=== PATIENT | female | born 1965 | race Caucasian/White ===

== ENCOUNTER → 2018-05-23 | Outpatient (CLI) | payer BC ==
--- NOTE | 2018-05-23 15:46 | RADIOLOGY IMAGING REPORT ---
FACILITY: [facility] - [place] PATIENT NAME: Mervat Queen : 1965 MR: [id number] V: [id number] EXAM DATE: ORDERING PHYSICIAN: JOSELYN LUZ TECHNOLOGIST: [place] [facility] [place] Mervat [place] : 1965 Visit/Account:[id number] Date of Sevice: 05/23/2018 Examination: Pelvic ultrasound Comparison: None Available History: Menopausal menorrhagia. Findings: Standard endovaginal and transabdominal pelvic ultrasound with color flow and spectral anal ysis. Uterus: Uterus measurement: 10.9 x 4.6 x 7.3 cm Endometrium measurement: 11 mm A few small cervical nabothian cysts are present. The endometrium and myometrium are homogeneous wit h no focal mass, fluid collection, or vascular abnormality identified. Adnexa: Right ovary: 2.4 x 1.6 x 2.2 cm . Best seen on endovaginal imaging there is a questionable homogeneo us intermediate attenuation 1.4 x 1.7 x 1.5 cm nonvascular lesion. Normal ovarian waveforms are demo nstrated on Doppler interrogation. Left ovary: 2.0 x 1.9 x 1.9 cm . No suspicious ovarian or adnexal mass. Normal arterial and venous f low is documented within the ovary on Doppler evaluation. Free fluid: None Urinary bladder: Unremarkable. IMPRESSION: 1. 11 mm homogeneous endometrium. Although no mass or vascular abnormality is identified, given the history of menopausal menorrhagia, hyperplasia/neoplasia cannot be excluded and at minimum, sonograp hic follow-up in 6-10 weeks is recommended. Alternatively, consider further characterization with ti ssue sampling. 2. Questionable 1.4 x 1.7 x 1.5 cm nonvascular lesion in the right ovary. Although a complex cyst i s favored with a solid mass consider less likely, sonographic follow-up in 6-10 weeks to evaluate for interval change is recommended. Report Dictated By: Nikolai Rivera MD at 05/23/2018 3:37 PM Report E-Signed By: Nikolai Rivera MD at 05/23/2018 3:42 PM WSN:[email or web address]
== END ==
LOC: US 03:57
PROVIDERS: ATTEND Nurse Practitioner Family
DX: N83.9 Noninflammatory disorder of ovary, fallopian tube and broad ligament, unspecified (principal); N92.4 Excessive bleeding in the premenopausal period
CPT/HCPCS: 76856

== ENCOUNTER → 2018-10-10 | Outpatient (CLI) | payer BC ==
[~2018-10-10] MED LIST: CHOL10005 PO; PROG200C PO
--- NOTE | 2018-10-12 23:41 | RT HOLTER TEST ---
FACILITY: [facility] PATIENT NAME: TYE NINO : [id number] MR: [id number] V: [id number] EXAM DATE: ORDERING PHYSICIAN: JOSELYN LUZ TECHNOLOGIST: Didier Hook-up date: 2018-10-10 11:21:00 Duration: 47:59:00 Test Indications: Tachycardia Medications: Propranolol Progesterone [id number] QRS complexes 27 Ventricular ectopics which represent <1 % of total QRS comp. 2 Supraventricular ectopics which represent <1 % of total QRS comp. * Paced QRS complexes which represent % of total QRS comp. VENTRICULAR ECTOPY 27 Isolated 0 Bigeminal Cycles 0 Couplets 0 Runs 0 Beats in Runs * Beats LONGEST at * BPM at :: -- * Beats FASTEST at * BPM at :: -- SUPRAVENTRICULAR ECTOPY 2 Isolated 0 Couplets 0 Runs 0 Beats in Runs * Beats LONGEST at * BPM at :: -- * Beats FASTEST at * BPM at :: -- HEART RATES 59 MIN at 21:27:20 2018-10-11 84 AVG 127 MAX at 10:54:58 2018-10-12 LONGEST RR 1.328 secs at 23:40:54 2018-10-10 Channel 3 -12.800 mm MIN at 11:21:00 2018-10-10 -12.800 mm MAX at 11:21:00 2018-10-10 The patient had 5 symptom triggered events. Four of them had a sinus tachycardia ranging from 103-10 8 beats per minute (bpm). The other event was a sinus rhythm at a rate of 95 bpm. There were no symptoms at the maximum heart rate of 127 bpm or ot her tachycardia events. The patient was predominantly in a sinus rhythm with rare ventricular ectopy and supraventricular ectopy. Confirmed by CLINTON TUCKER ([id number]) on 10/12/2018 11:41:25 PM Referred By: Overread By: CLINTON TUCKER
== END ==
LOC: LAB 10:31
PROVIDERS: ATTEND Nurse Practitioner Family
DX: R10.9 Unspecified abdominal pain (principal); R19.7 Diarrhea, unspecified; N95.1 Menopausal and female climacteric states; M25.50 Pain in unspecified joint; R00.0 Tachycardia, unspecified
CPT/HCPCS: 36415; 82784; 83516; 84443; 85651; 86038; 86140; 86430; 93225

== ENCOUNTER → 2018-11-11 | Outpatient (CLI) | payer BC ==
--- NOTE | 2018-11-11 12:16 | RADIOLOGY IMAGING REPORT ---
FACILITY: [facility] - [place] PATIENT NAME: Mervat Queen : 1965 MR: [id number] V: [id number] EXAM DATE: ORDERING PHYSICIAN: JOSELYN LUZ TECHNOLOGIST: Location: [facility] - [place] Patient: Mervat Queen : 1965 Visit/Account:[id number] Date of Sevice: 11/11/2018 EXAMINATION: Ultrasound thyroid HISTORY: Enlarged thyroid gland. COMPARISON: None. FINDINGS: Thyroid size: Right lobe: 5.5 x 2 x 2.6 cm Left lobe: 5.2 x 1 x 1.5 cm Isthmus: 0.2 cm Thyroid parenchyma: Homogeneous echotexture Thyroid vascularity: Normal. Thyroid nodules: Right lobe: * A solitary dominant partly solid and cystic right thyroid nodule is present in the mid to lower lo be, of 3.8 x 1.9 x 2.5 cm. Punctate foci of hyperechogenicity are most suggestive of colloid, althou gh microcalcifications may present similarly.. Left lobe: * Approximately 3 partly solid and cystic nodules are present. * Largest inferiorly measures 1.1 x 0.7 x 0.8 cm * Couple in the mid lobe measure 0.5 x 0.3 x 0.5 cm, and 0.5 x 0.2 x 0.3 cm. Isthmus: * None discrete. Additional findings: None. IMPRESSION: 1. Multinodular thyroid gland with dominant partly solid and cystic nodule on the right of up to 3.8 cm. Foci of hyperechogenicity are suggestive of colloid, although microcalcifications may present s imilarly. Based on size criteria, recommend correlation with fine-needle aspiration. 2. Approximately 3 partly solid and cystic left thyroid nodules have very low suspicion features, la rgest measuring 1.1 cm. No indication for left sided fine-needle aspiration at this time. REFERENCE: 2015 [employer] Management Guidelines for Adult Patients with Thyroid Nodules and D ifferentiated Thyroid Cancer: The [employer] Guidelines Task Force on Thyroid Nodul es and Differentiated Thyroid Cancer. SONOGRAPHIC PATTERNS: * Benign: Purely cystic nodules (no solid component); estimated risk of malignancy <1 percent; no bi opsy recommended. * Very Low Suspicion: Spongiform or partially cystic nodules without any of the sonographic features described in low, intermediate, or high suspicion patterns; estimated risk of malignancy <3 percent; consider FNA at > 2 cm (Observation without FNA is also a reasonable option). * Low Suspicion: Isoechoic or hyperechoic solid nodule, or partially cystic nodule with eccentric so lid areas, without microcalcification, irregular margin or ETE (extra-thyroidal extension), or taller than wide shape; estimated risk of malignancy 5-10 percent; recommend FNA at >1.5 cm. * Intermediate Suspicion: Hypoechoic solid nodule with smooth margins without microcalcifications, E TE (extra-thyroidal extension), or taller than wide shape; estimated risk of malignancy 10-20 percent ; recommend FNA at > 1 cm. * High Suspicion: Solid hypoechoic nodule or solid hypoechoic component of a partially cystic nodule with one or more of the following features: irregular margins (infiltrative, microlobulated), microc alcifications, taller than wide shape, rim calcifications with small extrusive soft tissue component, evidence of ETE (extra-thyroidal extension); estimated risk of malignancy >70-90 percent; recommend FNA at > 1 cm. NOTES: * Although a sonographically suspicious subcentimeter thyroid nodule without evidence of extrathyroi mert extension or sonographically suspicious lymph nodes may be observed with close sonographic follow -up rather than pursuing immediate FNA, patient age and preference may modify decision-making. * A > 50% interval increase in nodule volume and/or development of new suspicious sonographic featur es are felt to be a valid reasons for potential re-aspiration of a nodule previously shown to have be nign FNA cytology. Report Dictated By: Paradise Astudillo MD at 11/11/2018 10:54 AM Report E-Signed By: Paradise Astudillo MD at 11/11/2018 12:10 PM WSN:[email or web address]
== END ==
LOC: US 01:39
PROVIDERS: ATTEND Nurse Practitioner Family
DX: E04.2 Nontoxic multinodular goiter (principal)
CPT/HCPCS: 76536

== ENCOUNTER → 2019-01-03 | Outpatient (CLI) | payer BC ==
[2019-01-03 10:20] LABS: INR 0.92
--- NOTE | 2019-01-03 17:18 | RADIOLOGY IMAGING REPORT ---
FACILITY: [facility] - [place] PATIENT NAME: Mervat Queen : 1965 MR: [id number] V: [id number] EXAM DATE: ORDERING PHYSICIAN: JOSELYN LUZ TECHNOLOGIST: Location: [facility] Patient: Mervat Queen : 1965 Visit/Account:[id number] Date of Sevice: 01/03/2019 Exam type: US BIOPSY LOC/INJ THYROID History: Right thyroid mass Comparison: Thyroid ultrasound November 11, 2018. Findings: Informed consent was obtained. The right side of the patient's neck was prepped and draped usual irineo rile fashion. Under direct and continuous sonographic guidance four 25-gauge FNA biopsies were obtai fer through the dominant complex nodule in the right lobe of the thyroid gland. Samples were given t o the speech pathology supervisor for processing. The procedure was accomplished without apparent complic ation. IMPRESSION: 1. Successful sonographically guided FNA biopsy of the complex dominant right thyroid nodule Report Dictated By: Nayla Conway MD at 01/03/2019 5:08 PM Report E-Signed By: Nayla Conway MD at 01/03/2019 5:10 PM WSN:[email or web address]
== END ==
LOC: US 01:05
PROVIDERS: ATTEND Nurse Practitioner Family
DX: E04.9 Nontoxic goiter, unspecified (principal); E04.1 Nontoxic single thyroid nodule; R00.0 Tachycardia, unspecified
CPT/HCPCS: 10005; 36415; 85610; 88104